=== PATIENT | female | born 1995 | race Caucasian/White ===

== ENCOUNTER 2018-05-04 18:22 | Emergency (ER) | payer OTHER ==
[2018-05-04] MEDS ORDERED: Adacel (T-DAP) 0.5 ML SYRINGE ONE (18:33)
--- NOTE | 2018-05-04 20:28 | RAD ---
LEFT WRIST THREE VIEWS: 05/04/18 HISTORY: Left wrist laceration. Left wrist injury. FINDINGS: Scaphoid waist and ulnar styloids are intact. No acute fracture, dislocation or radiopaque foreign partha dies are apparent. IMPRESSION: No acute osseous abnormalities are demonstrated. POS: [facility]
== END 2018-05-04 19:25 | disposition home or self-care (01) ==
LOC: ERS 18:22
DX: S61.411A Laceration without foreign body of right hand, initial encounter (principal); S61.412A Laceration without foreign body of left hand, initial encounter; S61.512A Laceration without foreign body of left wrist, initial encounter; F32.9 Major depressive disorder, single episode, unspecified; F41.9 Anxiety disorder, unspecified; K50.90 Crohn's disease, unspecified, without complications; M45.9 Ankylosing spondylitis of unspecified sites in spine; Z23 Encounter for immunization; W25.XXXA Contact with sharp glass, initial encounter; Y99.0 Civilian activity done for income or pay
CPT/HCPCS: 12001; 90471; 90715

== ENCOUNTER 2018-05-31 10:23 | Outpatient (CLI) | payer OTHER ==
--- NOTE | 2018-05-31 13:09 | MRI ---
MRI OF THE ABDOMEN WITH AND WITHOUT CONTRAST UTILIZING MR ENTEROGRAPHY PROTOCOL: Date: 05/31/18 INDICATION: 22-year-old female with history of Crohn's disease of the colon. COMPARISON: None. FINDINGS: 11 mL MultiHance utilized for examination. The terminal ileum is identified in the right lower quadrant. There is no apparent wall thickening or inflammatory stranding or abnormal enhancement involving the terminal ileum or distal ileum. No drai nable fluid collection is evident. The appendix is difficult to visualize. No free fluid is evident within the pelvis. There is a moderate amount of retained stool within the r ectum and colon, slightly limiting the exam. No definite wall thickening or inflammatory stranding is seen involving the colon. The visualized liver, kidneys, adrenal glands, and spleen appear within normal limits. The pancreas a ppears within normal limits. No lymphadenopathy is evident. No bone marrow signal abnormality is noted. IMPRESSION: 1. No apparent bowel wall thickening or abnormal mucosal enhancement seen involving the small or lar ge bowel. 2. Moderate amount of retained stool within the rectum and colon. POS: [facility]
== END 2018-05-31 10:24 | disposition home or self-care (01) ==
LOC: MRI 10:23
PROVIDERS: ATTEND Internal Medicine Gastroenterology
DX: K50.90 Crohn's disease, unspecified, without complications (principal); K59.00 Constipation, unspecified
CPT/HCPCS: 74183; J1610